=== PATIENT | female | born 1965 | race Caucasian/White ===

== ENCOUNTER 2018-11-24 18:05 | Emergency (ER) | payer SELFPAY ==
--- NOTE | 2018-11-24 18:23 | Emergency Department Record ---
History of Present Illness - General Chief complaint: ENT Stated complaint: RT EAR PAIN,RT EYE WATERING Time Seen by Provider: 11/24/18 18:23 Source: Patient Mode of Arrival: Ambulatory Limitations: No limitations - History of Present Illness Initial comments: The patient is here due to the R side of her face not feeling right for a day. The R eye has not been closing correctly and the R face feels mildly numb. She also has been feeling mild pain in the R ear off and on. The patient denies any visual changes, HDZ, arm or leg numbness, tingling, or weakness. The patient's cousin told her to come to the ER for a head CT due to probably having Garcia's Palsy. complaint: Other Onset/Timin -: Days(s) Severity: Moderate Severity scale (1-10): 4 Quality: Aching Consistency: Constant, Intermittent Associated Symptoms: Cough, Sore throat - Related Data Previous Rx's Medication Instructions Recorded Prednisone [Prednisone 20Mg] 20 mg PO DAILY #24 tab 11/24/18 Allergies Allergy/AdvReac Type Severity Reaction Status Date / Time No Known Drug Allergies Allergy Verified 11/24/18 18:22 Travel Screening - Travel/Exposure Within Last 30 Days Have you traveled within the last 30 days?: No - Travel/Exposure Within Last Year Have you traveled outside the [place] in the last year?: No - Additonal Travel Details Have you been exposed to anyone with a communicable illness?: No - Travel Symptoms Symptom Screening: None Review of Systems Constitutional: Denies: Chills, Fever Eyes: Denies: Eye discharge ENT: Reports: Congestion. Denies: Dental pain Respiratory: Denies: Cough, Dyspnea Cardiovascular: Denies: Arrhythmia, Chest pain Endocrine: Denies: Fatigue Gastrointestinal: Denies: Nausea Genitourinary: Denies: Dysuria Musculoskeletal: Denies: Arthralgia Neurological: Denies: Abnormal gait Past Medical History - SOCIAL HISTORY Smoking Status: Heavy tobacco smoker (>10/day) Alcohol Use: Occasional Drug Use: Rare Drug Use Detail:: Marijuana - RESPIRATORY Hx Respiratory Disorders: Yes Hx COPD: Yes (unsure) Comment:: smokers cough - CARDIOVASCULAR Hx Cardio Disorders: Yes Hx Edema: Yes (hands and feet) Comment:: Does not exercise - NEURO Hx Neuro Disorders: Yes Hx Headaches: Yes (with weather changes) - GI Hx GI Disorders: Yes Hx Abdominal Pain: Yes (occass.) - Hx Genitourinary Disorders: Yes Hx Bladder Problem: Yes (bladder sling) Hx Renal Disease: Yes (low GFR from diuretics) - ENDOCRINE Hx Endocrine Disorders: No - MUSCULOSKELETAL Hx Musculoskeletal Disorders: Yes Hx Arthritis: (Unsure if has has in hands) - PSYCH Hx Psych Problems: No - HEMATOLOGY/ONCOLOGY Hx Hematology/Oncology Disorders: No Family Medical History Any Significant Family History?: Yes Hx Heart Disease: Father, Grandparents Hx Seizures: Grandparents Physical Exam - General General Appearance: Alert, Oriented x3, Cooperative, No acute distress - Head Head exam: Atraumatic, Normocephalic, Normal inspection - Eye Eye exam: Normal appearance, PERRL, EOMI. negative: Conjunctival injection - ENT ENT exam: Normal exam, Mucous membranes moist, Normal external ear exam, Normal orophraynx, TM's normal bilaterally Throat exam: Normal inspection. negative: Tonsillar erythema, Tonsillar exudate - Neck Neck exam: Normal inspection, Full ROM. negative: Lymphadenopathy, Meningismus , Tenderness - Respiratory Respiratory exam: Normal lung sounds bilaterally. negative: Respiratory distress - Cardiovascular Cardiovascular Exam: Regular rate, Normal rhythm, Normal heart sounds - GI/Abdominal GI/Abdominal exam: Soft, Normal bowel sounds. negative: Tenderness - Extremities Extremities exam: Normal inspection, Full ROM, Normal capillary refill. negative: Tenderness - Neurological Neurological exam: Alert, Motor sensory deficit (There is a very mild R sided facial weakness involving the upper and lower facial muscles. It appears to be a mild case of Garcia's Palsy. There are no sensory deficits to the face, arms and legs to light touch and temp.), Normal gait, Oriented X3, Reflexes normal, Other (Neg Drift and Rhomberg.). negative: Abnormal gait, Altered, CN II-XII intact (There is a slight weakness to the muscles of the R side of the face in the 7th nerve distribution. ) - Psychiatric Psychiatric exam: negative: Anxious Course Vital Signs 11/24/18 18:16 Temperature 97.8 F Pulse Rate 91 H Respiratory 18 Rate Blood Pressure 132/92 Pulse Ox 95 - Reevaluation(s) Reevaluation #1: The patient is doing well at this time. Her symptoms have not changed and she continues to have mild R facial muscle weakness. 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 She is to keep the R eye moist and to continue the Prednisone and see her PCP as directed. 11/24/18 20:12 Medical Decision Making - Data Complexity MDM Data: Labs Ordered and/or Reviewed, X-Ray Ordered and/or Reviewed - Lab Data Result diagrams: 11/24/18 18:55 11/24/18 18:55 - Radiology Data Radiology results: Report reviewed (Head CT: Neg.) Disposition Disposition: Discharge Clinical Impression: Garcia's palsy Disposition: Home, Self-Care Condition: (2) Stable Instructions: Garcia Palsy (ED) Additional Instructions: Please use artificial tears in the R eye if needed and continue the Prednisone. Please see your family doctor for recheck in 2-3 days and return to the ER for any worsening symptoms. Prescriptions: Prednisone [Prednisone 20Mg] 20 mg PO DAILY #24 tab Forms: Patient Portal Access Time of Disposition: 20:07 Quality - Quality Measures Quality Measures: N/A - Blood Pressure Screening View Details: Yes Does Patient Have Any of the Following: No Blood Pressure Classification: Hypertensive Reading Systolic Measurement: 132 Diastolic Measurement: 92 Screening for High Blood Pressure: < First Hypertensive BP, F/U Documented > [ [id number]] First Hypertensive Follow-up Interventions: Referral to alternative/primary care provider.
[2018-11-24 19:06] LABS: HEMATOCRIT 41.7 % (35.0-47.0); MEAN CELL VOLUME 86.5 fl (81-97); MEAN CORPUSCULAR HGB CONC 33.6 g/dl (32-36); MEAN PLATELET VOLUME 9.6 fl (7.4-10.4); PLATELET COUNT 293 K/uL (130-400); RED BLOOD COUNT 4.82 M/uL (3.80-5.40); RED CELL DISTRIBUTION WIDTH 13.3 % (11.5-14.5)
[2018-11-24 19:19] LABS: BLOOD UREA NITROGEN 15 mg/dL (6-20); CREATININE 0.8 mg/dL (0.5-0.9); EST GLOMERULAR FILTRATION RATE > 60 mL/min
[2018-11-24 19:20] LABS: TOTAL PROTEIN 7.4 g/dL (6.6-8.7)
[2018-11-24 19:22] LABS: GLUCOSE,RANDOM 96 mg/dL (74-109)
[2018-11-24 19:25] LABS: ALB/GLOB RATIO 1.1 (1.1-1.8); ALBUMIN 3.8 g/dL (4.0-5.0); ALKALINE PHOSPHATASE 80 U/L (35-104); ALT/SGPT 11 U/L (<33); AST/SGOT 10 U/L (10.0-35.0)
[2018-11-24] MEDS ORDERED: PREDNISONE 20 MG TAB PO ONE (19:25)
--- NOTE | 2018-11-27 13:03 | CT SCAN REPORT ---
EXAM: CT OF THE BRAIN WITHOUT CONTRAST HISTORY: RIGHT SIDED FACIAL WEAKNESS AND NUMBNESS. TECHNIQUE: Routine noncontrast CT examination of the brain was obtained. Comparison: None. FINDINGS: The ventricles and subarachnoid spaces are normal in size. No suspicious area of abnormally increased or decreased attenuation is noted throughout the brain substance. The rosenthal white interfaces are distinct. No abnormal extraaxial fluid collection is identified. No asymmetric density of the middle cerebral arteries. There is mucosal thickening within the visualized portions of the maxillary sinuses, several bilateral ethmoid air cells and the sphenoid sinuses. The orbits as visualized are normal in appearance. There is minor soft tissue density prominence in the posterior nasopharynx. This likely relates to benign prominence of adenoid tissue though other etiologies are not entirely excluded. If clinically warranted this could be further evaluated with direct visualization. IMPRESSION: 1. NO CT EVIDENCE OF ACUTE MAJOR VESSEL INFARCT, INTRACRANIAL HEMORRHAGE NOR MASS. 2. MUCOSAL THICKENING IN MULTIPLE PARANASAL SINUSES. 3. MILD SOFT TISSUE DENSITY PROMINENCE IN THE POSTERIOR NASOPHARYNX, DISCUSSED ABOVE. JOB NUMBER: [id number] [facility]
== END 2018-11-24 20:11 | disposition home or self-care (01) ==
LOC: ER 18:05
DX: G51.0 Bell's palsy (principal); F17.210 Nicotine dependence, cigarettes, uncomplicated
CPT/HCPCS: 70450; 80053; 85027; 87880; 99283; 99284; J7512